=== PATIENT | female | born 1990 | race Hispanic/Latino ===

== ENCOUNTER 2019-03-15 14:48 | Outpatient (CLI) | payer OTHER ==
--- NOTE | 2019-03-15 16:01 | ULT ---
TRANSABDOMINAL PELVIC ULTRASOUND WITH HUFF SCALE, COLOR FLOW AND SPECTRAL DOPPLER IMAGIN03/15/19 HISTORY: 28-year-old female with dyspareunia. Painful intercourse for one month. FINDINGS: The uterus measures 8.7 x 3.5 x 5.7 cm with a focal mass and calcifications likely due to fibroid sandra suring 1.3 x 1.2 x 1.6 cm. The endometrium measures 6 mm in thickness. No endometrial fluid is seen. The right ovary measures 2.2 x 1.5 x 1.9 cm and the left ovary measures 3.9 x 2.7 x 3.6 cm. Flow is d emonstrated to both ovaries. There is a 2.1 x 1.5 x 2.1 cm cyst in the left ovary. There is a small a mount of free fluid seen adjacent to the left ovary. IMPRESSION: 1. 2.1 cm left ovarian cyst with small amount of adjacent free fluid. 2. Uterine fibroid. POS: [facility]
== END 2019-03-15 14:49 | disposition home or self-care (01) ==
LOC: SCSULT 14:48
DX: N94.11 Superficial (introital) dyspareunia (principal); N83.202 Unspecified ovarian cyst, left side; D25.9 Leiomyoma of uterus, unspecified
CPT/HCPCS: 76856; 93976